=== PATIENT | male | born 1945 | race Caucasian/White ===

== ENCOUNTER 2016-06-25 14:04 | Inpatient (IN) | payer OTHER, MEDICARE ==
[~2016-06-25] VITALS: Ht 180.3 cm; Wt 115.4 kg
[2016-07-10] MEDS ORDERED: DOXA1TAB35 PO (15:48)
[2016-07-10] MEDS ORDERED: CARV12.52 PO (15:48)
[2016-07-10] MEDS ORDERED: PLAV75TA29 PO (15:50)
[2016-07-10] MEDS ORDERED: ASPI1TAB69 PO (15:50)
[2016-07-10] MEDS ORDERED: HYDR-3583 PO (15:54)
[2016-07-13] MEDS ORDERED: SODIUM CHLOR 0.9% 250 ML INJ 250 ML IV ONE (10:31)
[2016-07-13] MEDS ORDERED: PHENYLEPHRINE HCL 10 MG/ML VIAL IV ONE (10:31)
[2016-07-13] MEDS ORDERED: NEOSTIGMINE 3 MG/3 ML SYR IV ONE (10:31)
[2016-07-13] MEDS ORDERED: PROPOFOL 200 MG/20 ML AMP IV ONE (10:31)
[2016-07-13] MEDS ORDERED: ONDANSETRON HCL 4 MG/2 ML VIAL IV PUSH ONE (10:31)
[2016-07-13] MEDS ORDERED: DEXAMETHASONE SOD PHOS PF 10 MG/ML VIAL IV ONE (11:21)
[2016-07-13] MEDS ORDERED: ROPIVACAINE 0.5% PF INJ 30 ML VIAL NB ONE (11:21)
[2016-07-13] MEDS ORDERED: METOPROLOL TARTRATE 25 MG TAB PO PRN (11:30)
[2016-07-13] MEDS ORDERED: INSULIN HUMAN REGULAR 1,000 UNITS/10 ML VIAL SQ PRN (11:30)
[2016-07-13] MEDS ORDERED: ceFAZolin 2 GM PREMIX 50 ML ONE (11:33)
[2016-07-13] MEDS ORDERED: ceFAZolin 2 GM PREMIX 50 ML IV SCH (11:45)
[2016-07-13 11:49] VITALS: BP 136/96; PULSE 60; RESP 20; TEMP 98.2; O2SAT 97
[2016-07-13] MEDS ORDERED: LACTATED RINGER'S 1000 ML IV SCH (12:00)
[2016-07-13] MEDS ORDERED: SODIUM CHLORID 0.9% 500 ML IV SCH (12:00)
[2016-07-13] MEDS ORDERED: FAMOTIDINE 20 MG/2 ML VIAL ONE (12:38)
[2016-07-13] MEDS ORDERED: MIDAZOLAM HCL 2 MG/2 ML VIAL ONE (12:38)
[2016-07-13] MEDS ORDERED: GENTAMICIN SULFATE 80 MG/2 ML VIAL ONE (12:51)
[2016-07-13] MEDS ORDERED: ceFAZolin INJ 1,000 MG VIAL IV ONE (13:35)
[2016-07-13] MEDS ORDERED: ACETAMINOPHEN 325 MG TAB PO PRN (16:00)
[2016-07-13] MEDS ORDERED: MORPHINE SULFATE 8 MG/ML INJ IM PRN (16:00)
[2016-07-13] MEDS ORDERED: ONDANSETRON HCL 4 MG/2 ML VIAL IVP PRN (16:00)
[2016-07-13] MEDS ORDERED: SODIUM CHLORIDE 0.9% FLUSH 5 ML FLUSH IVF PRN ×2 (16:00)
[2016-07-13] MEDS ORDERED: Post-op Orders (for Pharmacy) MISC XX ONE ×2 (16:00)
[2016-07-13] MEDS ORDERED: NALOXONE HCL 0.4 MG/ML AMP IV PRN (16:00)
[2016-07-13] MEDS ORDERED: MORPHINE SULFATE 30 MG/30 ML PCA IV SCH (16:00)
[2016-07-13] MEDS ORDERED: DO NOT ADM ANY ANTICOAGULANT DRUGS XX PRN (16:01)
[2016-07-13] MEDS ORDERED: fentaNYL CITRATE 250 MCG/5 ML AMP ONE (16:09)
[2016-07-13] MEDS ORDERED: *morphine SULFATE 8 MG/ML PERIprocedure ONLY ONE ×2 (16:29→16:55)
[2016-07-13 16:52] LABS: HEMATOCRIT 38.5 % (39.0-51.0); REVIEW FLAG FINAL
[2016-07-13] MEDS: DEXT 5%-NACL 0.45% 1000 ML INJ 1,000 ML IV SCH (17:45)
--- NOTE | 2016-07-13 18:08 | RADRPT ---
EXAM DATE/TIME: 07/13/2016 16:27 [place] COMPARISON: No previous studies available for comparison. INDICATIONS : Left knee arthroplasty. MEDICAL HISTORY : None. SURGICAL HISTORY : Right knee arthroplasty. ENCOUNTER: Initial ACUITY: 1 day PAIN SCORE: 2/10 LOCATION: Left knee FINDINGS: Patient is immediately status post left total knee arthroplasty. Alignment within normal limits. No e vidence of hardware failure or loosening. There is a drain in the anterior joint space. CONCLUSION: Expected radiographic appearance after left total knee arthroplasty. No acute complication demonstrat ed. Godfrey Miller MD on July 13, 2016 at 18:05 Board Certified Radiologist. This report was verified electronically.
--- NOTE | 2016-07-13 18:17 | PD.CONS ---
HPI Service [facility] Consult Requested By Dr. Amaya Reason for Consult Medical management Primary Care Physician Dawit Oseguera M.D. Diagnoses: History of Present Illness 71-year-old male with past medical history of HTN, CAD, A. fib, OA to was admitted for left total knee replacement with Dr Amaya. [facility] were consulted for medical management. The patient has no specific complaints at this time. He has mild discomfort in his left knee. He denies any chest pain, shortness breath, lightheadedness, dizziness or nausea, vomiting, diarrhea, abdominal pain , numbness, tingling. Discussed with DIE CUTTER DIAMOND, the patient had an episode of bradycardia, and heart rate remains 40/50s. The patient states that one of his pacemaker leads has not been working and his hollow ware maker has been following it. His hollow ware maker is in [place], [place]. He did take his carvedilol this morning. The pacemaker device rep did, and evaluated patient's pacemaker which did show malfunctioning atrial lead. Pacemaker device automotive leasing sales representative recommended cardiology consultation for pacemaker adjustment. Review of Systems Except as stated in HPI: all other systems reviewed are Neg Past Family Social History Allergies: Coded Allergies: Contrast Media (Unverified Allergy, Severe, ERYTHEMA, 07/10/16) HMG-CoA Reductase Inhibitors (Verified Adverse Reaction, Unknown, 07/10/16) Past Medical History Hypertension Atrial fibrillation Coronary artery disease Past Surgical History Pacemaker placement, patient states was placed to "prevent A. fib" PCI with 3 stents 2 years ago Right total knee replacement in 2014 Back surgery 2 Inguinal hernia repair bilaterally Appendectomy Reported Medications e-Acetaminophen 10-325 mg Tab 1 Tab PO Q6H PRN Aspirin 81 Mg Tabdr 81 Mg PO DAILY Plavix (Clopidogrel Bisulfate) 75 Mg Tab 75 Mg PO DAILY Carvedilol 12.5 Mg Tab 12.5 Mg PO BID Doxazosin (Doxazosin Mesylate) 2 Mg Tab 2 Mg PO BID Active Ordered Medications Current Medications Medications (Trade) Dose Ordered Sig/Alejandrina Route Start Time Stop Time Status Last Admin (NS 500 ml Inj) 500 ml @ 30 mls/hr [id number] IV 07/13/16 12:00 07/14/16 11:59 Povidone Iodine 1 applic 1 applic ONCE TOP 07/13/16 11:45 07/16/16 11:44 (Ancef Inj/NS Inj) 100 ml @ 200 mls/hr Q6H IV 07/13/16 20:00 07/14/16 08:29 (Lovenox Inj) 40 mg Q24H SQ 07/14/16 04:00 (Morphine Inj) 5 mg Q3H PRN IM 07/13/16 16:00 (Potomac 5-325 Mg) 2 tab Q4H PRN PO 07/13/16 16:00 (Tylenol) 650 mg Q6H PRN PO 07/13/16 16:00 (Theragran M Tab) 1 tab BID PO 07/14/16 21:00 09/12/16 20:59 (Zofran Inj) 4 mg Q6H PRN IVP 07/13/16 16:00 (Colace) 100 mg BID PO 07/14/16 21:00 (NS Flush) 2 ml UNSCH PRN IVF 07/13/16 16:00 (NS Flush) 2 ml BID IVF 07/13/16 21:00 (Narcan Inj) 0.4 mg UNSCH PRN IV 07/13/16 16:00 (Morphine 1 Mg/ ml FULL STACK PYTHON DEVELOPER) 30 mg UNSCH IV 07/13/16 16:00 FULL STACK PYTHON DEVELOPER Dosage Infused (Pha) 1 Q8HR .XX 07/13/16 22:00 Miscellaneous Information ALL NURSING DEPARTME... UNSCH PRN XX 07/13/16 16:01 07/14/16 16:00 (D5W-1/2 NS 1000 ml Inj) 1,000 ml @ 80 mls/hr [id number] IV 07/13/16 17:00 (Coreg) 12.5 mg BID PO 07/13/16 21:00 (Cardura) 2 mg BID PO 07/13/16 21:00 Family History Brother had prostate cancer Father had Alzheimer's Social History No alcohol, tobacco, or drug use Physical Exam Vital Signs Vital Signs Date Time Temp Pulse Resp B/P Pulse Ox O2 Delivery O2 Flow Rate FiO2 07/13/16 17:30 57 17 131/85 93 Nasal Cannula 3 07/13/16 17:15 54 17 116/87 94 Nasal Cannula 3 07/13/16 17:00 47 17 118/78 92 Nasal Cannula 3 07/13/16 16:45 52 17 120/78 93 Nasal Cannula 4 07/13/16 16:30 48 17 126/82 95 Nasal Cannula 4 07/13/16 16:15 58 15 132/80 95 Nasal Cannula 4 07/13/16 16:02 53 15 127/80 94 Nasal Cannula 4 07/13/16 15:59 38 15 94 07/13/16 15:57 97.6 78 15 130/90 93 Nasal Cannula 4 07/13/16 11:49 98.2 60 20 136/96 97 Physical Exam GENERAL: Well-developed well-nourished. In no acute distress. SKIN: Warm and dry. No lesions noted. HEENT: Normocephalic. Pupils equal and round. Mucous membranes pink and moist. CARDIOVASCULAR: Bradycardic rate and regular rhythm. No murmur appreciated. RESPIRATORY: No accessory muscle use. Clear to auscultation. Breath sounds equal bilaterally. GASTROINTESTINAL: Abdomen soft, non-tender, nondistended. Bowel sounds x4. MUSCULOSKELETAL: Left knee in immobilizer. No clubbing or cyanosis. No edema. Able to wiggle toes bilaterally and sensation in feet grossly intact. NEUROLOGICAL: Awake and alert. No focal neurological deficits. Moves upper and lower extremities spontaneously. Normal speech. PSYCHIATRIC: Appropriate mood and affect; insight and judgment normal. Laboratory Laboratory Tests Test 07/13/16 07/13/16 11:40 16:40 Blood Type O POSITIVE Antibody Screen NEGATIVE Crossmatch Leukocyte-Reduced Red Blood Cells Blood Bank Comment Hemoglobin 13.1 Hematocrit 38.5 Result Diagram: 07/13/16 1640 Assessment and Plan Assessment and Plan 71-year-old male with past medical history of HTN, CAD, A. fib, OA to was admitted for left total knee replacement S/P left total knee replacement 07/13 -Perioperative care including pain management(currently Potomac and morphine FULL STACK PYTHON DEVELOPER) , activity, rehabilitation, DVT prophylaxis per orthopedic surgery -Resume antiplatelets when cleared by orthopedic surgery -IVF for now until tolerating oral intake Asymptomatic bradycardia with malfunctioning pacemaker lead: Heart rate 30s by rhythm strip and telemetry. S/P device interrogation, recommended cardiology consultation. Cardiology consulted, appreciate specialists input. Check 12- lead EKG. Monitor on telemetry. Check electrolytes. CAD/A. fib/HTN: Resume aspirin and Plavix when cleared by orthopedic surgery. Continue carvedilol with hold parameters. Resume doxazosin. DVT prophylaxis: On Lovenox per orthopedic surgery Patient stable, examined agree with management. Code Status Full Code. Discussed Condition With Patient with RN and [employer] device rep at bedside, Fransico Ron Jul 13, 2016 18:17 New Irvin MD Jul 14, 2016 13:34
[2016-07-13] MEDS: ACETAMINOPHEN/HYDROcodone 325 MG/5 MG TAB PO PRN (19:00)
[2016-07-13 19:13] LABS: BICARBONATE 24.6 MEQ/L (21.0-32.0); MAGNESIUM 1.9 MG/DL (1.5-2.5); POTASSIUM 4.1 MEQ/L (3.5-5.1)
[2016-07-13] MEDS: SODIUM CHLORIDE 0.9% FLUSH 5 ML FLUSH IVF SCH (21:00)
[2016-07-13] MEDS ORDERED: SODIUM CHLORIDE 0.9% FLUSH 5 ML FLUSH IVF SCH (21:00)
[2016-07-13 21:20] VITALS: BP 133/77; PULSE 68; RESP 17; TEMP 96.4; O2SAT 95
[2016-07-13] MEDS: CARVEDILOL 12.5 MG TAB PO SCH (21:53)
[2016-07-13] MEDS: DOXAZOSIN MESYLATE 2 MG TAB PO SCH (21:53)
[2016-07-13] MEDS: PCA - TOTAL MG MORPHINE DELIVERED PER SHIFT SCH (22:00)
[2016-07-14] VITALS (9 sets, daily range): BP systolic 86–138; BP diastolic 50–83; PULSE 71–89; RESP 16–18; TEMP 96.3–98.8; O2SAT 93–96
[2016-07-14] MEDS: ENOXAPARIN SODIUM 40 MG/0.4 ML SYRINGE SQ SCH (04:00)
[2016-07-14] MEDS: DEXT 5%-NACL 0.45% 1000 ML INJ 1,000 ML IV SCH ×3 (05:25→21:40)
[2016-07-14] MEDS: PCA - TOTAL MG MORPHINE DELIVERED PER SHIFT SCH ×3 (06:00→22:00)
[2016-07-14] MEDS: ACETAMINOPHEN/HYDROcodone 325 MG/5 MG TAB PO PRN (08:32)
[2016-07-14] MEDS: SODIUM CHLORIDE 0.9% FLUSH 5 ML FLUSH IVF SCH ×2 (08:33→21:00)
[2016-07-14] MEDS: CARVEDILOL 12.5 MG TAB PO SCH ×2 (08:33→21:40)
[2016-07-14] MEDS: DOXAZOSIN MESYLATE 2 MG TAB PO SCH ×2 (08:33→21:40)
--- NOTE | 2016-07-14 08:54 | PD.ORT.PN ---
Subjective Post Op Day #: 1 Subjective Remarks Doing okay and had a good night. Some pain in left knee. Objective Vitals Vital Signs Date Time Temp Pulse Resp B/P Pulse Ox O2 Delivery O2 Flow Rate FiO2 07/14/16 06:00 16 07/14/16 04:00 Nasal Cannula 2.00 07/14/16 04:00 96.9 72 17 100/72 95 07/14/16 00:00 96.3 83 16 97/60 96 07/14/16 00:00 Nasal Cannula 2.00 07/13/16 22:00 16 07/13/16 21:20 96.4 68 17 133/77 95 07/13/16 21:00 Nasal Cannula 2.00 07/13/16 20:30 68 13 134/87 94 Nasal Cannula 3 07/13/16 20:00 82 14 109/74 93 Nasal Cannula 3 07/13/16 19:33 17 07/13/16 19:30 82 16 109/62 95 Nasal Cannula 3 07/13/16 19:00 97.5 69 16 120/71 92 Nasal Cannula 3 07/13/16 18:30 71 17 138/87 96 Nasal Cannula 3 07/13/16 18:00 58 17 120/73 96 Nasal Cannula 3 07/13/16 17:30 57 17 131/85 93 Nasal Cannula 3 07/13/16 17:15 58 17 117/86 94 Nasal Cannula 3 07/13/16 17:15 54 17 116/87 94 Nasal Cannula 3 07/13/16 17:00 47 17 118/78 92 Nasal Cannula 3 07/13/16 16:45 52 17 120/78 93 Nasal Cannula 4 07/13/16 16:30 48 17 126/82 95 Nasal Cannula 4 07/13/16 16:15 58 15 132/80 95 Nasal Cannula 4 07/13/16 16:02 53 15 127/80 94 Nasal Cannula 4 07/13/16 15:59 38 15 94 07/13/16 15:57 97.6 78 15 130/90 93 Nasal Cannula 4 07/13/16 11:49 98.2 60 20 136/96 97 I/O 07/13/16 07/13/16 07/13/16 07/14/16 07/14/16 07/14/16 07:00 15:00 23:00 07:00 15:00 23:00 Intake Total 2006 ml 695 ml Output Total 300 ml 550 ml Balance 1706 ml 145 ml Intake Oral 490 ml 240 ml IV Total 766 ml 455 ml Other 750 ml Output Urine Total 550 ml Drainage Total 0 ml 0 ml Estimated Blood Loss 150 ml Autotransfusion 150 ml # Bowel Movements 0 Result Diagram: 07/13/16 1640 07/13/16 1822 Imaging Last Impressions Knee X-Ray 07/13/16 0000 Signed Impressions: Service Date/Time: Wednesday, July 13, 2016 16:27 - CONCLUSION: Expected radiographic appearance after left total knee arthroplasty. No acute complication demonstrated. Godfrey Miller MD Objective Remarks Dressings and drains in place. Motion not tested today. Patient has CPM at bedside. Moving foot and toes well. Assessment & Plan Ortho Post Op Day #: 1 Problem List: (1) Status post total left knee replacement using cement Plan: Antibiotics today and dressing change and drains out in AM tomorrow. Post knee replacement rehab. Medical physician has seen patient and Cardiology consult pending. Rakesh Amaya MD Jul 14, 2016 08:54
--- NOTE | 2016-07-14 11:05 | MP ---
cc: VITA CORNEJO MD DATE OF SURGERY: 07/13/2016 ATTENDING SURGEON Monique PREOPERATIVE DIAGNOSIS Left knee severe osteoarthritis. POSTOPERATIVE DIAGNOSIS Left knee severe osteoarthritis. PROCEDURE Left knee total knee arthroplasty. PROCEDURE IN DETAIL Informed consent was obtained. The patient was taken to the operating room and placed in the supine position on the operating table. He was administered general anesthesia after receiving a block in the left leg. The left thigh had a tourniquet applied. The leg was then prepped with hexachlorophene and alcohol from the tourniquet to the tip of the toes. Draping commenced in the standard fashion with sterile down sheet, sterile towel about the tourniquet, split sheet. Stockinette was applied about the foot and calf. This was wrapped with Coban. An extremity drape was applied. A timeout was held and confirmed. The patient had been given two grams of Ancef prior to the initiation of the operative procedure. At that time the leg was elevated and the tourniquet was inflated to 300 mmHg. At that time an incision was made which was an anterior incision, Insall type. The skin and subcutaneous tissue was divided. Bleeders were coagulated utilizing Bovie. The medial parapatellar arthrotomy was performed. The patella was everted. Fat pad was excised utilizing a rongeur. The anatomy was normalized. At that time a hole was drilled in the distal femur and the distal femoral alignment jojo was placed. The distal femoral cutting block was placed and set for removal of 11 mm of bone from the distal femur. The alignment jig was removed. The distal femoral cut was made and the distal femoral cutting block was removed. Next, a sizing jig was placed. This was sized at a size 5 femur. The four-in-one cutting block was placed. Anterior, posterior and chamfer cuts were then made. A size 5 trial component from the DropMat was selected and impacted onto the distal femur. The fit appeared quite satisfactory. Holes were drilled and this component was removed. Next, the extramedullary tibial alignment jig was placed, set for removal of 2 mm of bone from the proximal tibia and the medial compartment. Once the cutting block was properly aligned to the transmalleolar axis this was fixed to the bone with pins. The alignment jig was removed. The proximal tibial cut was then made. The tibial joint surface was also sized at a size 5. The size 5 tibial trial followed by the size 5 femoral trial and the 8 mm trial spacer were placed and the range of motion and stability of the knee appeared excellent. The tibial trial was lined up and final tibial preparation was performed. Next, all these components were removed. The patella was everted using a patella clamp. 11.5 mm of bone was removed from the dorsal aspect of the patella. The patella was sized at a size 38. Some debridement of excess bone in the periphery was performed. Holes were drilled with the drill and a trial 38 patella spacer was placed, found to be satisfactory. All trial components were then removed. The knee was thoroughly irrigated with the pulsatile lavage system. A bone plug was placed in the distal femoral channel. The components were then cemented utilizing a methyl methacrylate bone cement in the following order: The tibial component was placed first and excess bone cement was removed. Next, the femoral component was placed and again excess bone cement was removed. The tibial trial insert was placed at size 8 thickness and the leg was brought into extension. The final patella component was then placed. The tibial component utilized was a PFC Sigma tibial tray size 5 from the DropMat. The femoral component was a femoral cruciate-retaining cemented size 5 for the left knee. The patella that was then cemented was the 38 mm three-peg oval dome patella. The cement was allowed to harden for 15 minutes. The final tibial insert was then placed after removal of the trial. This was a size 5, 8 mm thick. This was impacted into position, was PFC Sigma tibial insert, fixed bearing curved. At that time the tourniquet was deflated. Hemostasis was obtained. The wound was closed with #1 Vicryl, 0 Vicryl and 2-0 Vicryl followed by 3-0 plain in the superficial subcu and skin samira. Two Autovac drains were placed during wound closure. Xeroform, 4x4s, Sof-Rol and Tanner wrap were applied to the patient's leg. He was placed in a canvas knee splint. The patient tolerated the procedure well and was then taken to the recovery room in stable condition. At the completion of the procedure, sponge counts, instrument counts and needle counts were all correct. Estimated blood loss was 150 cc. MD SAULO Tovar /4:17 PM /10:41 AM
--- NOTE | 2016-07-14 11:36 | EKG ---
Date Performed: 07/13/2016 Time Performed: 21:24:20 PTAGE: 71 years EKG: Sinus rhythm VENTRICULAR DEMAND PACING NONSPECIFIC LATERAL ST/T ABNORMALITIES BORDERLINE ECG PREVIOUS TRACING : 11/17/2013 09.36 Compared to previous tracing, nonspecific ST/T changes are now present, ventricular demand pacing is now evident. DOCTOR: Homero Wallace Interpretating Date/Time 07/14/2016 11:36:04
[2016-07-14] MEDS: POVIDONE IODINE 7.5% SCRUB 118 ML BOTTLE TOP SCH (11:45)
--- NOTE | 2016-07-14 13:44 | HHI.PR ---
Subjective Remarks This is a pleasant 71 y/o Male with Hypertension, CAD, Atrial Fibrillation, OA, admitted for left total knee arthroplasty by Doctor Monique, the patient had one episode of Bradycardia, he has talent sourcing specialist following him for his Pacemaker, has Malfunction of the Atrial lead. today seen in the room in the presence of his , discussed with nurse Miss Renuka khan. Objective Vital Signs Date Time Temp Pulse Resp B/P Pulse Ox O2 Delivery O2 Flow Rate FiO2 07/14/16 13:03 79 107/83 07/14/16 12:00 98.3 75 18 86/50 95 07/14/16 08:49 Nasal Cannula 07/14/16 08:25 Nasal Cannula 2.00 07/14/16 08:00 97.7 71 18 116/76 96 07/14/16 06:00 16 07/14/16 04:00 Nasal Cannula 2.00 07/14/16 04:00 96.9 72 17 100/72 95 07/14/16 00:00 96.3 83 16 97/60 96 07/14/16 00:00 Nasal Cannula 2.00 07/13/16 22:00 16 07/13/16 21:20 96.4 68 17 133/77 95 07/13/16 21:00 Nasal Cannula 2.00 07/13/16 20:30 68 13 134/87 94 Nasal Cannula 3 07/13/16 20:00 82 14 109/74 93 Nasal Cannula 3 07/13/16 19:33 17 07/13/16 19:30 82 16 109/62 95 Nasal Cannula 3 07/13/16 19:00 97.5 69 16 120/71 92 Nasal Cannula 3 07/13/16 18:30 71 17 138/87 96 Nasal Cannula 3 07/13/16 18:00 58 17 120/73 96 Nasal Cannula 3 07/13/16 17:30 57 17 131/85 93 Nasal Cannula 3 07/13/16 17:15 58 17 117/86 94 Nasal Cannula 3 07/13/16 17:15 54 17 116/87 94 Nasal Cannula 3 07/13/16 17:00 47 17 118/78 92 Nasal Cannula 3 07/13/16 16:45 52 17 120/78 93 Nasal Cannula 4 07/13/16 16:30 48 17 126/82 95 Nasal Cannula 4 07/13/16 16:15 58 15 132/80 95 Nasal Cannula 4 07/13/16 16:02 53 15 127/80 94 Nasal Cannula 4 07/13/16 15:59 38 15 94 07/13/16 15:57 97.6 78 15 130/90 93 Nasal Cannula 4 I/O 07/13/16 07/13/16 07/13/16 07/14/16 07/14/16 07/14/16 07:00 15:00 23:00 07:00 15:00 23:00 Intake Total 2006 ml 695 ml Output Total 300 ml 550 ml Balance 1706 ml 145 ml Intake Oral 490 ml 240 ml IV Total 766 ml 455 ml Other 750 ml Output Urine Total 550 ml Drainage Total 0 ml 0 ml Estimated Blood Loss 150 ml Autotransfusion 150 ml # Bowel Movements 0 Result Diagram: 07/13/16 1640 07/13/16 1822 Imaging Last Impressions Knee X-Ray 07/13/16 0000 Signed Impressions: Service Date/Time: Wednesday, July 13, 2016 16:27 - CONCLUSION: Expected radiographic appearance after left total knee arthroplasty. No acute complication demonstrated. Godfrey Miller MD Procedures Left total knee arthroplasty. Other Results Laboratory Tests Test 07/13/16 07/13/16 07/13/16 11:40 16:40 18:22 Blood Type O POSITIVE Antibody Screen NEGATIVE Crossmatch Leukocyte-Reduced Red Blood Cells Blood Bank Comment Hemoglobin 13.1 GM/DL Hematocrit 38.5 % Sodium Level 138 MEQ/L Potassium Level 4.1 MEQ/L Chloride Level 105 MEQ/L Carbon Dioxide Level 24.6 MEQ/L Anion Gap 8 MEQ/L Blood Urea Nitrogen 15 MG/DL Creatinine 1.10 MG/DL Estimat Glomerular Filtration 66 ML/MIN Rate Random Glucose 129 MG/DL Calcium Level 8.1 MG/DL Magnesium Level 1.9 MG/DL Objective Remarks GENERAL: Well-developed well-nourished. In no acute distress. SKIN: Warm and dry. No lesions noted. HEENT: Normocephalic. Pupils equal and round. Mucous membranes pink and moist. CARDIOVASCULAR: Bradycardic rate and regular rhythm. No murmur appreciated. RESPIRATORY: No accessory muscle use. Clear to auscultation. Breath sounds equal bilaterally. GASTROINTESTINAL: Abdomen soft, non-tender, nondistended. Bowel sounds x4. MUSCULOSKELETAL: Left knee dressed, working with continuous passive Motion equipment. NEUROLOGICAL: Awake and alert. No focal neurological deficits. Moves upper and lower extremities spontaneously. Normal speech. PSYCHIATRIC: Appropriate mood and affect; insight and judgment normal. Medications and IVs Current Medications Medications (Trade) Dose Ordered Sig/Alejandrina Route Start Time Stop Time Status Last Admin (Betadine 7.5% Scrub) 1 applic ONCE TOP 07/13/16 11:45 07/16/16 11:44 (Lovenox Inj) 40 mg Q24H SQ 07/14/16 04:00 07/14/16 04:00 (Morphine Inj) 5 mg Q3H PRN IM 07/13/16 16:00 (Tylenol) 650 mg Q6H PRN PO 07/13/16 16:00 (Theragran M Tab) 1 tab BID PO 07/14/16 21:00 09/12/16 20:59 (Zofran Inj) 4 mg Q6H PRN IVP 07/13/16 16:00 (Colace) 100 mg BID PO 07/14/16 21:00 (NS Flush) 2 ml UNSCH PRN IVF 07/13/16 16:00 (NS Flush) 2 ml BID IVF 07/13/16 21:00 (Narcan Inj) 0.4 mg UNSCH PRN IV 07/13/16 16:00 (Morphine 1 Mg/ ml HISTOLOGIC TECHNICIAN) 30 mg UNSCH IV 07/13/16 16:00 07/13/16 19:33 HISTOLOGIC TECHNICIAN Dosage Infused (Pha) 1 Q8HR .XX 07/13/16 22:00 07/14/16 06:00 Miscellaneous Information ALL NURSING DEPARTME... UNSCH PRN XX 07/13/16 16:01 07/14/16 16:00 (D5W-1/2 NS 1000 ml Inj) 1,000 ml @ 80 mls/hr [id number] IV 07/13/16 17:00 07/14/16 05:25 (Coreg) 12.5 mg BID PO 07/13/16 21:00 07/14/16 08:33 (Cardura) 2 mg BID PO 07/13/16 21:00 07/14/16 08:33 ([place] 10-325 Mg) 1 tab Q4H PRN PO 07/14/16 11:00 A/P Assessment and Plan 1. OA of the Left knee status post Left total knee arthroplasty 2. Hypertension controlled 3. CAD/Atrial Fibrillation status post Pacemaker placement, had episode of Bradycardia status post Pacemaker interrogation, talent sourcing specialist consult placed. continue Aspirin and Plavix once cleared by Orthopedic performance improvement specialist. DVT prophylaxis: On Lovenox per orthopedic surgery Seen in the room in the presence of nurse Miss Bauer and with his Mrs. Lechuga Discharge Planning as per Orthopedic performance improvement specialist New Irvin MD Jul 14, 2016 13:44
--- NOTE | 2016-07-14 14:45 | MB ---
cc: TIMOTHY DIAZ DATE OF 1945 DATE OF CONSULTATION July 14, 2016 REASON FOR CONSULTATION Transient asymptomatic sinus bradycardia. HISTORY OF PRESENT ILLNESS 71-year-old male with past medical history significant for hypertension, coronary artery disease, atrial fibrillation not on chronic oral anticoagulation , admitted for left total knee replacement with Dr. Amaya. The patient has been consulted to Cardiology because of one episode of asymptomatic transient sinus bradycardia. Pacemaker was interrogated which revealed decreased sensing and increase thresholds in the atrial lead. The pacemaker was reprogrammed to a VVI mode. The patient reports feeling well. He denies dizziness, shortness of breath, syncope, chest pain, nausea, vomiting, diarrhea, diaphoresis, lightheadedness. He reports that most of his cardiovascular care is done in [place]. He reported that his doctor has known about this issue with the atrial lead for a long time now and he has been waiting for replacement of the lead plus/minus also atrial fibrillation ablation. Of note, the patient is not on chronic oral anticoagulation because he does not want to be on warfarin or any of the new oral anticoagulants agents. PAST MEDICAL HISTORY 1. Hypertension. 1. Atrial fibrillation. 2. Coronary artery disease. 3. He has stents. PAST SURGICAL HISTORY 1. Right total knee replacement. 2. Back surgery. 3. Inguinal hernia repair. 4. Appendectomy. ALLERGIES STATINS. CONTRAST MEDIA. HOME MEDICATIONS 1. Aspirin 81 p.o. daily. 2. Plavix 75 mg p.o. daily. 3. Coreg 12.5 mg p.o. b.i.d. 4. Doxazosin 2 mg p.o. b.i.d. FAMILY HISTORY Noncontributory. SOCIAL HISTORY Denies alcohol, tobacco or drug use. PHYSICAL EXAMINATION VITAL SIGNS: Temperature 98.3, respiratory rate 18, heart rate 75, blood pressure 86/50, O2 sat 95% on room air. GENERAL: He is alert, awake, oriented x 3, in no acute distress. NECK: No JVD, no carotid bruits. HEART: Regular rate and rhythm. No murmurs, rubs or gallops appreciated. ABDOMEN: Soft, nontender, nondistended. Positive bowel sounds. LUNGS: Clear to auscultation bilaterally. No wheezes or rhonchi or rales. EXTREMITIES: No cyanosis, no edema. DATA Hemoglobin 13, hematocrit 38. Chemistries - Sodium 138, potassium 4.8, BUN 15, creatinine 1.1, calcium 8.1. EKG shows sinus rhythm with occasional premature ventricular contractions. Here the court usher shows sinus rhythm. ASSESSMENT AND PLAN 71-year-old male with above history and findings, status post knee replacement, consulted to Cardiology because of transient asymptomatic sinus bradycardia and atrial lead dysfunction. He remains afebrile and hemodynamically stable. He has no active cardiac complaints. I have advise him that the atrial lead needs to be revised/changed, however, he wants to wait to see his quality control at [facility] to further decide. I have also discussed with the patient the risk of having stroke in patients with Afib and that is highly recommended to be on oral anticoagulation; however, he does not want to be on chronic oral anticoagulation is willing to take the risk of a stroke. The pacemaker has been changed to a VVI mode. He has had no episode of bradycardia here after the exchange. Continue current medication management. RECOMMENDATIONS 1. Continue current medical management. 2. Continue telemetry monitoring 3. The patient should follow up with his quality control as an outpatient. 4. I will discuss the case with our packing clerk, Dr. Barrett, just in case the patient changes his mind regarding having the atrial lead exchanged in this hospitalization. Thank you for the opportunity to take part in the care of this patient. I will be available on a p.r.n. basis for any further questions or concerns. MD BERENICE Manuel/LIANG /1:05 PM /2:32 PM ANISA
[2016-07-14] MEDS: ACETAMINOPHEN/HYDROcodone 325 MG/10 MG TAB PO PRN (16:19)
[2016-07-14] MEDS: MULTIVITAMINS/MINERALS THERAPEUTIC TAB PO SCH (21:40)
[2016-07-14] MEDS: DOCUSATE SODIUM 100 MG CAP PO SCH (21:41)
[2016-07-15] VITALS: BP 122/77; PULSE 80; RESP 16; TEMP 99.1; O2SAT 93
[2016-07-15 04:00] VITALS: BP 138/83; PULSE 82; RESP 16; TEMP 98.3; O2SAT 94
[2016-07-15] MEDS: ENOXAPARIN SODIUM 40 MG/0.4 ML SYRINGE SQ SCH (04:00)
[2016-07-15] MEDS: MAGNESIUM HYDROXIDE SUSP 30 ML CUP PO PRN (05:28)
[2016-07-15] MEDS: ACETAMINOPHEN/HYDROcodone 325 MG/10 MG TAB PO PRN ×3 (05:28→16:48)
[2016-07-15] MEDS: PCA - TOTAL MG MORPHINE DELIVERED PER SHIFT SCH ×3 (06:00→22:00)
[2016-07-15 06:48] LABS: HEMATOCRIT 31.3 % (39.0-51.0); REVIEW FLAG FINAL
[2016-07-15 08:00] VITALS: BP 134/76; PULSE 90; RESP 16; TEMP 98.3; O2SAT 94
[2016-07-15] MEDS: MULTIVITAMINS/MINERALS THERAPEUTIC TAB PO SCH ×2 (08:35→23:31)
[2016-07-15] MEDS: SODIUM CHLORIDE 0.9% FLUSH 5 ML FLUSH IVF SCH ×2 (08:35→23:32)
[2016-07-15] MEDS: CARVEDILOL 12.5 MG TAB PO SCH ×2 (08:35→23:31)
[2016-07-15] MEDS: DOCUSATE SODIUM 100 MG CAP PO SCH ×2 (08:35→23:32)
[2016-07-15] MEDS: DOXAZOSIN MESYLATE 2 MG TAB PO SCH ×2 (08:35→23:32)
[2016-07-15] MEDS: POVIDONE IODINE 7.5% SCRUB 118 ML BOTTLE TOP SCH (09:17)
[2016-07-15 12:10] VITALS: BP 130/70; PULSE 84; RESP 18; TEMP 97.8; O2SAT 95
--- NOTE | 2016-07-15 13:06 | HHI.FF ---
Face to Face Verification Diagnosis: (1) Status post total left knee replacement using cement Physical Therapy Gait training, Safety evaluation Knee: Total knee, Protocol: Left, Full weight bearing Canvas Knee Splint: Other Right LE Weight Bearing: WB as tolerated Left LE Weight Bearing: WB as tolerated Left LE Range of Motion: Active Assistive ROM Nursing RN Days per Week: 3 x Week(s): 4 Nursing: Marleny teaching, Dressing changes Dressing Changes: Daily dressing change Additional Instructions Clean with Alcohol and apply sterile dressing I have seen patient Rakesh Colby on 07/15/16. My clinical findings support the need for the requested home health care services because: Ltd mobility - disease progression Limited ability to care for self High risk of falls I certify that my clinical findings support that this patient is homebound because: Post-op weakness Impaired cognitive ability/safety Unsteady gait/balance Rakesh Amaya MD Jul 15, 2016 13:06
[2016-07-15] MEDS ORDERED: CPMMACHINE (13:10)
[2016-07-15] MEDS ORDERED: MISC-163 (13:10)
[2016-07-15] MEDS ORDERED: WALKER WHEELS/F1 MIS (13:11)
--- NOTE | 2016-07-15 13:26 | PD.ORT.PN ---
Subjective Post Op Day #: 2 Subjective Remarks Up in chair. Some pain in left knee. Objective Vitals Vital Signs Date Time Temp Pulse Resp B/P Pulse Ox O2 Delivery O2 Flow Rate FiO2 07/15/16 08:00 98.3 90 16 134/76 94 07/15/16 04:00 98.3 82 16 138/83 94 07/15/16 00:00 99.1 80 16 122/77 93 07/14/16 22:00 18 07/14/16 21:39 93 Nasal Cannula 2.00 07/14/16 21:39 89 07/14/16 20:20 96 21 07/14/16 20:00 98.8 81 17 128/68 93 07/14/16 16:00 98.2 74 18 138/80 93 I/O 07/14/16 07/14/16 07/14/16 07/15/16 07/15/16 07/15/16 07:00 15:00 23:00 07:00 15:00 23:00 Intake Total 695 ml 569 ml 1181 ml 859 ml Output Total 550 ml 0 ml 655 ml 305 ml Balance 145 ml 569 ml 526 ml 554 ml Intake Oral 240 ml 840 ml 240 ml IV Total 455 ml 569 ml 341 ml 619 ml Output Urine Total 550 ml 650 ml 300 ml Drainage Total 0 ml 0 ml 5 ml 5 ml # Bowel Movements 0 0 0 Result Diagram: 07/15/16 0519 07/13/16 1822 Imaging Last Impressions Knee X-Ray 07/13/16 0000 Signed Impressions: Service Date/Time: Wednesday, July 13, 2016 16:27 - CONCLUSION: Expected radiographic appearance after left total knee arthroplasty. No acute complication demonstrated. Godfrey Miller MD Objective Remarks Dressings have been changed today and drains are out. Motion not tested today. Patient has CPM at bedside. Moving foot and toes well. Assessment & Plan Ortho Post Op Day #: 2 Problem List: (1) Status post total left knee replacement using cement Plan: Continue rehabilitation. Initial discharge preparations made. Rakesh Amaya MD Jul 15, 2016 13:26
--- NOTE | 2016-07-15 16:14 | HHI.PR ---
Subjective Remarks This is a pleasant 71 y/o Male with Hypertension, CAD, Atrial Fibrillation, OA, admitted for left total knee arthroplasty by Doctor Monique, the patient had one episode of Bradycardia, he has credentialing specialist following him for his Pacemaker, has Malfunction of the Atrial lead. today seen in the room in the presence of his , stable states due to pain was left until today by Orthopedic surgery he will go home at discharge. Cardiology recommended to follow with his Primary credentialing specialist. Objective Vital Signs Date Time Temp Pulse Resp B/P Pulse Ox O2 Delivery O2 Flow Rate FiO2 07/15/16 14:00 18 07/15/16 13:08 18 07/15/16 08:00 98.3 90 16 134/76 94 07/15/16 04:00 98.3 82 16 138/83 94 07/15/16 00:00 99.1 80 16 122/77 93 07/14/16 22:00 18 07/14/16 21:39 93 Nasal Cannula 2.00 07/14/16 21:39 89 07/14/16 20:20 96 21 07/14/16 20:00 98.8 81 17 128/68 93 I/O 07/14/16 07/14/16 07/14/16 07/15/16 07/15/16 07/15/16 07:00 15:00 23:00 07:00 15:00 23:00 Intake Total 695 ml 569 ml 1181 ml 859 ml Output Total 550 ml 0 ml 655 ml 305 ml Balance 145 ml 569 ml 526 ml 554 ml Intake Oral 240 ml 840 ml 240 ml IV Total 455 ml 569 ml 341 ml 619 ml Output Urine Total 550 ml 650 ml 300 ml Drainage Total 0 ml 0 ml 5 ml 5 ml # Bowel Movements 0 0 0 Result Diagram: 07/15/16 0519 07/13/16 1822 Imaging Last Impressions Knee X-Ray 07/13/16 0000 Signed Impressions: Service Date/Time: Wednesday, July 13, 2016 16:27 - CONCLUSION: Expected radiographic appearance after left total knee arthroplasty. No acute complication demonstrated. Godfrey Miller MD Procedures Left total knee arthroplasty. Other Results Laboratory Tests Test 07/13/16 07/13/16 07/15/16 11:40 18:22 05:19 Blood Type O POSITIVE Antibody Screen NEGATIVE Crossmatch Leukocyte-Reduced Red Blood Cells Blood Bank Comment Sodium Level 138 MEQ/L Potassium Level 4.1 MEQ/L Chloride Level 105 MEQ/L Carbon Dioxide Level 24.6 MEQ/L Anion Gap 8 MEQ/L Blood Urea Nitrogen 15 MG/DL Creatinine 1.10 MG/DL Estimat Glomerular Filtration 66 ML/MIN Rate Random Glucose 129 MG/DL Calcium Level 8.1 MG/DL Magnesium Level 1.9 MG/DL Hemoglobin 10.6 GM/DL Hematocrit 31.3 % Objective Remarks GENERAL: Well-developed well-nourished. In no acute distress. SKIN: Warm and dry. No lesions noted. HEENT: Normocephalic. Pupils equal and round. Mucous membranes pink and moist. CARDIOVASCULAR: Bradycardic rate and regular rhythm. No murmur appreciated. RESPIRATORY: No accessory muscle use. Clear to auscultation. Breath sounds equal bilaterally. GASTROINTESTINAL: Abdomen soft, non-tender, nondistended. Bowel sounds x4. MUSCULOSKELETAL: Left knee dressed, stable. NEUROLOGICAL: Awake and alert. No focal neurological deficits. Moves upper and lower extremities spontaneously. Normal speech. PSYCHIATRIC: Appropriate mood and affect; insight and judgment normal. Medications and IVs Current Medications Medications (Trade) Dose Ordered Sig/Alejandrina Route Start Time Stop Time Status Last Admin (Betadine 7.5% Scrub) 1 applic ONCE TOP 07/13/16 11:45 07/16/16 11:44 (Lovenox Inj) 40 mg Q24H SQ 07/14/16 04:00 07/15/16 04:00 (Morphine Inj) 5 mg Q3H PRN IM 07/13/16 16:00 (Tylenol) 650 mg Q6H PRN PO 07/13/16 16:00 (Theragran M Tab) 1 tab BID PO 07/14/16 21:00 09/12/16 20:59 07/15/16 08:35 (Zofran Inj) 4 mg Q6H PRN IVP 07/13/16 16:00 (Colace) 100 mg BID PO 07/14/16 21:00 07/15/16 08:35 (NS Flush) 2 ml UNSCH PRN IVF 07/13/16 16:00 (NS Flush) 2 ml BID IVF 07/13/16 21:00 (Narcan Inj) 0.4 mg UNSCH PRN IV 07/13/16 16:00 (Morphine 1 Mg/ ml WELDING SUPERVISOR) 30 mg UNSCH IV 07/13/16 16:00 07/13/16 19:33 WELDING SUPERVISOR Dosage Infused (Pha) 1 1 Q8HR .XX 07/13/16 22:00 07/15/16 14:00 (D5W-1/2 NS 1000 ml Inj) 1,000 ml @ 80 mls/hr [id number] IV 07/13/16 17:00 07/14/16 21:40 (Coreg) 12.5 mg BID PO 07/13/16 21:00 07/15/16 08:35 (Cardura) 2 mg BID PO 07/13/16 21:00 07/15/16 08:35 ([place] 10-325 Mg) 1 tab Q4H PRN PO 07/14/16 11:00 07/15/16 12:08 (Milk Of Magnz[place] Liq) 30 ml Q12H PRN PO 07/15/16 02:30 07/15/16 05:28 A/P Assessment and Plan 1. OA of the Left knee status post Left total knee arthroplasty POD #2 2. Hypertension controlled 3. CAD/Atrial Fibrillation status post Pacemaker placement, had episode of Bradycardia status post Pacemaker interrogation, credentialing specialist consult placed. continue Aspirin and Plavix once cleared by Orthopedic medicare insurance specialist. credentialing specialist recommended to follow with his Primary credentialing specialist at discharge. DVT prophylaxis: On Lovenox per orthopedic surgery Seen in the room in the presence of nurse Bette and with his Mrs. Lechuga Discharge Planning as per Orthopedic medicare insurance specialist Okay to discharge from Medicine standpoint. New Irvin MD Jul 15, 2016 16:14
[2016-07-15 16:35] VITALS: BP 139/70; PULSE 84; RESP 20; TEMP 97.6; O2SAT 98
[2016-07-15] MEDS: DEXT 5%-NACL 0.45% 1000 ML INJ 1,000 ML IV SCH (19:00)
[2016-07-15 20:35] VITALS: BP 121/78; PULSE 66; RESP 22; TEMP 97.5; O2SAT 92
[2016-07-16 00:42] VITALS: BP 121/87; PULSE 83; RESP 21; TEMP 97.9; O2SAT 92
[2016-07-16] MEDS: ENOXAPARIN SODIUM 40 MG/0.4 ML SYRINGE SQ SCH (04:14)
[2016-07-16] MEDS: ACETAMINOPHEN/HYDROcodone 325 MG/10 MG TAB PO PRN ×2 (04:14→09:26)
[2016-07-16 04:33] VITALS: BP 119/82; PULSE 85; RESP 20; TEMP 97.3; O2SAT 94
[2016-07-16] MEDS: PCA - TOTAL MG MORPHINE DELIVERED PER SHIFT SCH ×3 (06:00→22:00)
[2016-07-16] MEDS: DEXT 5%-NACL 0.45% 1000 ML INJ 1,000 ML IV SCH ×2 (07:30→20:00)
[2016-07-16 08:00] VITALS: BP 137/91; PULSE 75; RESP 20; TEMP 98; O2SAT 92
[2016-07-16] MEDS: MULTIVITAMINS/MINERALS THERAPEUTIC TAB PO SCH ×2 (09:25→20:14)
[2016-07-16] MEDS: DOCUSATE SODIUM 100 MG CAP PO SCH ×2 (09:25→20:13)
[2016-07-16] MEDS: CARVEDILOL 12.5 MG TAB PO SCH ×2 (09:25→20:14)
[2016-07-16] MEDS: MAGNESIUM HYDROXIDE SUSP 30 ML CUP PO PRN (09:26)
[2016-07-16] MEDS: DOXAZOSIN MESYLATE 2 MG TAB PO SCH ×2 (09:26→20:14)
[2016-07-16] MEDS: SODIUM CHLORIDE 0.9% FLUSH 5 ML FLUSH IVF SCH ×2 (09:26→21:00)
--- NOTE | 2016-07-16 10:52 | HHI.PR ---
Subjective Remarks This is a pleasant 71 y/o Male with Hypertension, CAD, Atrial Fibrillation, OA, admitted for left total knee arthroplasty by Doctor Monique, the patient had one episode of Bradycardia, he has client resolution specialist following him for his Pacemaker, has Malfunction of the Atrial lead. Seen in the room stable no new issues, performing Physical therapy in his bedroom, no Nausea, vomit or diarrhea. Objective Vital Signs Date Time Temp Pulse Resp B/P Pulse Ox O2 Delivery O2 Flow Rate FiO2 07/16/16 04:33 97.3 85 20 119/82 94 07/16/16 00:42 97.9 83 21 121/87 92 07/15/16 20:35 97.5 66 22 121/78 92 07/15/16 17:48 18 07/15/16 16:35 97.6 84 20 139/70 98 07/15/16 14:00 18 07/15/16 12:10 97.8 84 18 130/70 95 I/O 07/15/16 07/15/16 07/15/16 07/16/16 07/16/16 07/16/16 07:00 15:00 23:00 07:00 15:00 23:00 Intake Total 859 ml 1080 ml 360 ml 240 ml Output Total 305 ml 325 ml 300 ml Balance 554 ml 1080 ml 35 ml -60 ml Intake Oral 240 ml 1080 ml 360 ml 240 ml IV Total 619 ml Output Urine Total 300 ml 325 ml 300 ml Drainage Total 5 ml # Voids 4 # Bowel Movements 0 0 0 0 Result Diagram: 07/15/16 0519 07/13/16 1822 Imaging Last Impressions Knee X-Ray 07/13/16 0000 Signed Impressions: Service Date/Time: Wednesday, July 13, 2016 16:27 - CONCLUSION: Expected radiographic appearance after left total knee arthroplasty. No acute complication demonstrated. Godfrey Miller MD Procedures Left total knee arthroplasty. Other Results Laboratory Tests Test 07/13/16 07/13/16 07/15/16 11:40 18:22 05:19 Blood Type O POSITIVE Antibody Screen NEGATIVE Crossmatch Leukocyte-Reduced Red Blood Cells Blood Bank Comment Sodium Level 138 MEQ/L Potassium Level 4.1 MEQ/L Chloride Level 105 MEQ/L Carbon Dioxide Level 24.6 MEQ/L Anion Gap 8 MEQ/L Blood Urea Nitrogen 15 MG/DL Creatinine 1.10 MG/DL Estimat Glomerular Filtration 66 ML/MIN Rate Random Glucose 129 MG/DL Calcium Level 8.1 MG/DL Magnesium Level 1.9 MG/DL Hemoglobin 10.6 GM/DL Hematocrit 31.3 % Objective Remarks GENERAL: Well-developed well-nourished. In no acute distress. SKIN: Warm and dry. No lesions noted. HEENT: Normocephalic. Pupils equal and round. Mucous membranes pink and moist. CARDIOVASCULAR: Bradycardic rate and regular rhythm. No murmur appreciated. RESPIRATORY: No accessory muscle use. Clear to auscultation. Breath sounds equal bilaterally. GASTROINTESTINAL: Abdomen soft, non-tender, nondistended. Bowel sounds x4. MUSCULOSKELETAL: Left knee dressed, stable. NEUROLOGICAL: Awake and alert. No focal neurological deficits. Moves upper and lower extremities spontaneously. Normal speech. PSYCHIATRIC: Appropriate mood and affect; insight and judgment normal. Medications and IVs Current Medications Medications (Trade) Dose Ordered Sig/Alejandrina Route Start Time Stop Time Status Last Admin (Betadine 7.5% Scrub) 1 applic ONCE TOP 07/13/16 11:45 07/16/16 11:44 (Lovenox Inj) 40 mg Q24H SQ 07/14/16 04:00 07/16/16 04:14 (Morphine Inj) 5 mg Q3H PRN IM 07/13/16 16:00 (Tylenol) 650 mg Q6H PRN PO 07/13/16 16:00 (Theragran M Tab) 1 tab BID PO 07/14/16 21:00 09/12/16 20:59 07/16/16 09:25 (Zofran Inj) 4 mg Q6H PRN IVP 07/13/16 16:00 (Colace) 100 mg BID PO 07/14/16 21:00 07/16/16 09:25 (NS Flush) 2 ml UNSCH PRN IVF 07/13/16 16:00 (NS Flush) 2 ml BID IVF 07/13/16 21:00 07/16/16 09:26 (Narcan Inj) 0.4 mg UNSCH PRN IV 07/13/16 16:00 (Morphine 1 Mg/ ml APPLICATIONS ADMINISTRATOR) 30 mg UNSCH IV 07/13/16 16:00 07/13/16 19:33 APPLICATIONS ADMINISTRATOR Dosage Infused (Pha) 1 1 Q8HR .XX 07/13/16 22:00 07/15/16 14:00 (D5W-1/2 NS 1000 ml Inj) 1,000 ml @ 80 mls/hr [id number] IV 07/13/16 17:00 07/14/16 21:40 (Coreg) 12.5 mg BID PO 07/13/16 21:00 07/16/16 09:25 (Cardura) 2 mg BID PO 07/13/16 21:00 07/16/16 09:26 ([place] 10-325 Mg) 1 tab Q4H PRN PO 07/14/16 11:00 07/16/16 09:26 (Milk Of Raquel [place]) 30 ml Q12H PRN PO 07/15/16 02:30 07/16/16 09:26 A/P Assessment and Plan 1. OA of the Left knee status post Left total knee arthroplasty POD #3 2. Hypertension controlled 3. CAD/Atrial Fibrillation status post Pacemaker placement, had episode of Bradycardia status post Pacemaker interrogation, client resolution specialist consult placed. continue Aspirin and Plavix once cleared by Orthopedic nurse specialist. client resolution specialist recommended to follow with his Primary client resolution specialist at discharge. DVT prophylaxis: On Lovenox per orthopedic surgery Seen in the room in the presence of nurse Miss Anderson no complaint. as per patient he will go home tomorrow. Discharge Planning as per Orthopedic nurse specialist Okay to discharge from Medicine standpoint. New Irvin MD Jul 16, 2016 10:52
[2016-07-16 12:00] VITALS: BP 104/74; PULSE 83; RESP 20; TEMP 96.5; O2SAT 93
--- NOTE | 2016-07-16 14:58 | PD.ORT.PN ---
Subjective Post Op Day #: 3 Subjective Remarks Better. On CPM and currently at 65 degrees of flexion. . Objective Vitals Vital Signs Date Time Temp Pulse Resp B/P Pulse Ox O2 Delivery O2 Flow Rate FiO2 07/16/16 12:00 96.5 83 20 104/74 93 07/16/16 08:00 98.0 75 20 137/91 92 07/16/16 04:33 97.3 85 20 119/82 94 07/16/16 00:42 97.9 83 21 121/87 92 07/15/16 20:35 97.5 66 22 121/78 92 07/15/16 17:48 18 07/15/16 16:35 97.6 84 20 139/70 98 I/O 07/15/16 07/15/16 07/15/16 07/16/16 07/16/16 07/16/16 07:00 15:00 23:00 07:00 15:00 23:00 Intake Total 859 ml 1080 ml 360 ml 240 ml Output Total 305 ml 325 ml 300 ml Balance 554 ml 1080 ml 35 ml -60 ml Intake Oral 240 ml 1080 ml 360 ml 240 ml IV Total 619 ml Output Urine Total 300 ml 325 ml 300 ml Drainage Total 5 ml # Voids 4 # Bowel Movements 0 0 0 0 Result Diagram: 07/15/16 0519 07/13/16 1822 Imaging Last Impressions Knee X-Ray 07/13/16 0000 Signed Impressions: Service Date/Time: Wednesday, July 13, 2016 16:27 - CONCLUSION: Expected radiographic appearance after left total knee arthroplasty. No acute complication demonstrated. Godfrey Miller MD Objective Remarks Dressings changed today and incision looks Patient on CPM. Moving foot and toes well. Assessment & Plan Ortho Post Op Day #: 3 Problem List: (1) Status post total left knee replacement using cement Plan: Continue rehabilitation. Anticipate Discharge tomorrow Rakesh Amaya MD Jul 16, 2016 14:58
[2016-07-16 16:30] VITALS: BP 109/66; PULSE 69; RESP 16; TEMP 98; O2SAT 95
[2016-07-16 20:45] VITALS: BP 118/64; PULSE 68; RESP 20; TEMP 98.2; O2SAT 95
[2016-07-17 00:30] VITALS: BP 124/64; PULSE 94; RESP 20; TEMP 98.2; O2SAT 96
[2016-07-17] MEDS: ENOXAPARIN SODIUM 40 MG/0.4 ML SYRINGE SQ SCH (04:07)
[2016-07-17 04:35] VITALS: BP 125/69; PULSE 71; RESP 20; TEMP 98.5; O2SAT 94
[2016-07-17] MEDS: PCA - TOTAL MG MORPHINE DELIVERED PER SHIFT SCH (06:00)
--- NOTE | 2016-07-17 07:39 | HHI.PR ---
Subjective Remarks This is a pleasant 71 y/o Male with Hypertension, CAD, Atrial Fibrillation, OA, admitted for left total knee arthroplasty by Doctor Monique, the patient had one episode of Bradycardia, he has retail sales specialist following him for his Pacemaker, has Malfunction of the Atrial lead. Stable states is having loose stools related to the use of Stool softner, but no other complaint, no nausea or vomit. Objective Vital Signs Date Time Temp Pulse Resp B/P Pulse Ox O2 Delivery O2 Flow Rate FiO2 07/17/16 04:35 98.5 71 20 125/69 94 07/17/16 00:30 98.2 94 20 124/64 96 07/16/16 20:45 98.2 68 20 118/64 95 07/16/16 16:30 98.0 69 16 109/66 95 07/16/16 12:00 96.5 83 20 104/74 93 07/16/16 08:00 98.0 75 20 137/91 92 I/O 07/16/16 07/16/16 07/16/16 07/17/16 07/17/16 07/17/16 07:00 15:00 23:00 07:00 15:00 23:00 Intake Total 240 ml 480 ml 240 ml 480 ml Output Total 300 ml Balance -60 ml 480 ml 240 ml 480 ml Intake Oral 240 ml 480 ml 240 ml 480 ml Output Urine Total 300 ml # Voids 2 2 2 # Bowel Movements 0 0 2 2 Result Diagram: 07/15/16 0519 07/13/16 1822 Imaging Last Impressions Knee X-Ray 07/13/16 0000 Signed Impressions: Service Date/Time: Wednesday, July 13, 2016 16:27 - CONCLUSION: Expected radiographic appearance after left total knee arthroplasty. No acute complication demonstrated. Godfrey Miller MD Procedures Left total knee arthroplasty. Other Results Laboratory Tests Test 07/13/16 07/13/16 07/15/16 11:40 18:22 05:19 Blood Type O POSITIVE Antibody Screen NEGATIVE Crossmatch Leukocyte-Reduced Red Blood Cells Blood Bank Comment Sodium Level 138 MEQ/L Potassium Level 4.1 MEQ/L Chloride Level 105 MEQ/L Carbon Dioxide Level 24.6 MEQ/L Anion Gap 8 MEQ/L Blood Urea Nitrogen 15 MG/DL Creatinine 1.10 MG/DL Estimat Glomerular Filtration 66 ML/MIN Rate Random Glucose 129 MG/DL Calcium Level 8.1 MG/DL Magnesium Level 1.9 MG/DL Hemoglobin 10.6 GM/DL Hematocrit 31.3 % Objective Remarks GENERAL: Well-developed well-nourished. In no acute distress. SKIN: Warm and dry. No lesions noted. HEENT: Normocephalic. Pupils equal and round. Mucous membranes pink and moist. CARDIOVASCULAR: Bradycardic rate and regular rhythm. No murmur appreciated. RESPIRATORY: No accessory muscle use. Clear to auscultation. Breath sounds equal bilaterally. GASTROINTESTINAL: Abdomen soft, non-tender, nondistended. Bowel sounds x4. MUSCULOSKELETAL: Left knee dressed, stable. NEUROLOGICAL: Awake and alert. No focal neurological deficits. Moves upper and lower extremities spontaneously. Normal speech. PSYCHIATRIC: Appropriate mood and affect; insight and judgment normal. Medications and IVs Current Medications Medications (Trade) Dose Ordered Sig/Alejandrina Route Start Time Stop Time Status Last Admin (Lovenox Inj) 40 mg Q24H SQ 07/14/16 04:00 07/17/16 04:07 (Morphine Inj) 5 mg Q3H PRN IM 07/13/16 16:00 (Tylenol) 650 mg Q6H PRN PO 07/13/16 16:00 (Theragran M Tab) 1 tab BID PO 07/14/16 21:00 09/12/16 20:59 07/16/16 20:14 (Zofran Inj) 4 mg Q6H PRN IVP 07/13/16 16:00 (Colace) 100 mg BID PO 07/14/16 21:00 07/16/16 09:25 (NS Flush) 2 ml UNSCH PRN IVF 07/13/16 16:00 (NS Flush) 2 ml BID IVF 07/13/16 21:00 07/16/16 21:00 (Narcan Inj) 0.4 mg UNSCH PRN IV 07/13/16 16:00 (Morphine 1 Mg/ ml MAGNETIC LOCATER) 30 mg UNSCH IV 07/13/16 16:00 07/13/16 19:33 MAGNETIC LOCATER Dosage Infused (Pha) 1 1 Q8HR .XX 07/13/16 22:00 07/15/16 14:00 (D5W-1/2 NS 1000 ml Inj) 1,000 ml @ 80 mls/hr [id number] IV 07/13/16 17:00 3/7/17 21:40 (Coreg) 12.5 mg BID PO 07/13/16 21:00 07/16/16 20:14 (Cardura) 2 mg BID PO 07/13/16 21:00 07/16/16 20:14 ([place] 10-325 Mg) 1 tab Q4H PRN PO 07/14/16 11:00 07/16/16 09:26 (Milk Of Raquel Liq) 30 ml Q12H PRN PO 07/15/16 02:30 07/16/16 09:26 A/P Assessment and Plan 1. OA of the Left knee status post Left total knee arthroplasty POD #4 2. Hypertension controlled 3. CAD/Atrial Fibrillation status post Pacemaker placement, had episode of Bradycardia status post Pacemaker interrogation, retail sales specialist consult placed. continue Aspirin and Plavix once cleared by Orthopedic home theater specialist. retail sales specialist recommended to follow with his Primary retail sales specialist at discharge. DVT prophylaxis: On Lovenox per orthopedic surgery Seen in the room Stable okay to discharge from Medicine standpoint. Discharge Planning as per Orthopedic home theater specialist Okay to discharge from Medicine standpoint. New Irvin MD Jul 17, 2016 07:38 New Irvin MD Jul 17, 2016 07:38
[2016-07-17 08:00] VITALS: BP 140/72; PULSE 63; RESP 20; TEMP 98.1; O2SAT 92
[2016-07-17] MEDS: DEXT 5%-NACL 0.45% 1000 ML INJ 1,000 ML IV SCH (08:30)
[2016-07-17] MEDS: DOXAZOSIN MESYLATE 2 MG TAB PO SCH (09:00)
[2016-07-17] MEDS: SODIUM CHLORIDE 0.9% FLUSH 5 ML FLUSH IVF SCH (09:00)
[2016-07-17] MEDS: CARVEDILOL 12.5 MG TAB PO SCH (10:46)
[2016-07-17] MEDS: MULTIVITAMINS/MINERALS THERAPEUTIC TAB PO SCH (10:46)
[2016-07-17 12:00] VITALS: BP 119/57; PULSE 70; RESP 20; TEMP 97.9; O2SAT 96
[2016-07-17] MEDS: ACETAMINOPHEN/HYDROcodone 325 MG/10 MG TAB PO PRN ×2 (12:22→18:42)
[2016-07-17] MEDS ORDERED: LACTATED RINGER'S 1000 ML INJ 1,000 ML IV SCH (15:13)
[2016-07-17] MEDS ORDERED: ACETAMINOPHEN/HYDROcodone 325 MG/7.5 MG TAB PO PRN (15:15)
[2016-07-17] MEDS ORDERED: Post-op Orders (for Pharmacy) MISC XX ONE (15:15)
[2016-07-17] MEDS ORDERED: MORPHINE SULFATE 8 MG/ML INJ IM PRN (15:15)
[2016-07-17] MEDS ORDERED: ENOXAPARIN SODIUM 40 MG/0.4 ML SYRINGE SQ SCH (15:15)
[2016-07-17] MEDS ORDERED: NALOXONE HCL 0.4 MG/ML AMP IV PRN (15:15)
[2016-07-17] MEDS ORDERED: SODIUM CHLORIDE 0.9% FLUSH 5 ML FLUSH IVF PRN (15:15)
[2016-07-17] MEDS ORDERED: ACETAMINOPHEN 325 MG TAB PO PRN (15:15)
[2016-07-17] MEDS ORDERED: ONDANSETRON HCL 4 MG/2 ML VIAL IVP PRN (15:15)
[2016-07-17] MEDS ORDERED: MORPHINE SULFATE 30 MG/30 ML PCA IV SCH (15:15)
[2016-07-17] MEDS ORDERED: ZOLPIDEM TARTRATE 5 MG TAB PO PRN (15:15)
[2016-07-17 16:00] VITALS: BP 109/72; PULSE 59; RESP 20; TEMP 96.8; O2SAT 93
[2016-07-17] MEDS ORDERED: ENOX40P SQ (16:14)
[2016-07-17] MEDS ORDERED: HYDR-3366 PO (16:15)
--- NOTE | 2016-07-17 16:22 | HHI.DS ---
Discharge Summary Admission Date Jul 13, 2016 at 10:44 Discharge Date: Jul 17, 2016 Admitting Diagnosis Osteoarthritis Left Knee Diagnosis: (1) Status post total left knee replacement using cement Diagnosis: Principal Procedures Left Total Knee Arthroplasty Brief History This is a 71 year old male patient with severe osteoarthritis left knee. Prior right TKA. Surgery has been held due to cardiac issues. CBC/BMP: 07/15/16 0519 07/13/16 1822 Significant Findings Laboratory Tests Test 07/15/16 05:19 Hemoglobin 10.6 GM/DL (13.0-17.0) Hematocrit 31.3 % (39.0-51.0) Imaging Last Impressions Knee X-Ray 07/13/16 0000 Signed Impressions: Service Date/Time: Wednesday, July 13, 2016 16:27 - CONCLUSION: Expected radiographic appearance after left total knee arthroplasty. No acute complication demonstrated. Godfrey Miller MD PE at Discharge Incision looks good/ Range of motion -5 to 75 degrees. Swelling is improved. Moving foot and toes well. Hospital Course Uncomplicated post op course. IV antibiotics and rehab. Pt Condition on Discharge: Good Discharge Disposition: Disch w/ Home Health Serv Discharge Instructions Diet Instructions: As Tolerated, No Restrictions Activities You Can Perform: Weight Bearing as Lior Activities to Avoid: Prolonged Standing, Bathing Rakesh Amaya MD Jul 17, 2016 16:22
[2016-07-17] MEDS ORDERED: SODIUM CHLORIDE 0.9% FLUSH 5 ML FLUSH IVF SCH (21:00)
[2016-07-17] MEDS ORDERED: PCA - TOTAL MG MORPHINE DELIVERED PER SHIFT SCH (22:00)
== END 2016-07-17 18:56 | disposition home health service (06) | DRG 470 ==
LOC: HSDI 07-13 10:44 → N06A 07-13 21:00 → N06B 07-16 14:27 → N06A 07-16 14:30
PROVIDERS: ADMIT Orthopaedic Surgery; ATTEND Orthopaedic Surgery
PROC: 4B02XSZ Measurement of Cardiac Pacemaker, External Approach (ICD-10-PCS; 2016-07-13)
PROC: 3E0T3CZ (ICD-10-PCS; 2016-07-13)
PROC: 0SRD0J9 Replacement of Left Knee Joint with Synthetic Substitute, Cemented, Open Approach (ICD-10-PCS; principal; 2016-07-13 13:18)
DX: M17.12 Unilateral primary osteoarthritis, left knee (principal); T82.110A Breakdown (mechanical) of cardiac electrode, initial encounter; R00.1 Bradycardia, unspecified; I10 Essential (primary) hypertension; I25.10 Atherosclerotic heart disease of native coronary artery without angina pectoris; E78.2 Mixed hyperlipidemia; N40.0 Benign prostatic hyperplasia without lower urinary tract symptoms; I48.91 Unspecified atrial fibrillation; K59.00 Constipation, unspecified; Z95.5 Presence of coronary angioplasty implant and graft; Y83.1 Surgical operation with implant of artificial internal device as the cause of abnormal reaction of the patient, or of later complication, without mention of misadventure at the time of the procedure; Z45.018 Encounter for adjustment and management of other part of cardiac pacemaker; Z79.82 Long term (current) use of aspirin; Z79.02 Long term (current) use of antithrombotics/antiplatelets; Z88.8 Allergy status to other drugs, medicaments and biological substances; Z91.041 Radiographic dye allergy status
CPT/HCPCS: 73560; 80048; 83735; 85014; 85018; 86850; 86890; 86900; 86901; 86920; 93005; 94150; C1776; J0690; J1100; J1580; J1650; J2250; J2270; J2370; J2405; J2710; J2795; J3010; J7050; L1830